=== PATIENT | female | born 1985 | race Caucasian/White ===

== ENCOUNTER 2023-07-02 19:27 | Emergency (ER) | payer OTHER, SELFPAY ==
[2023-07-02] MEDS ORDERED: Morphine 4 MG/ML VIAL ONE (19:35)
[2023-07-02] MEDS ORDERED: Boostrix 0.5 ML (Tdap) VIAL (>/=7 yrs of age) ONE (20:00)
[2023-07-02] MEDS ORDERED: Ondansetron ODT 4 MG TAB ONE (20:33)
== END 2023-07-02 20:49 | disposition home or self-care (01) ==
LOC: ERS 19:27
DX: S60.552A Superficial foreign body of left hand, initial encounter (principal); F17.210 Nicotine dependence, cigarettes, uncomplicated; W45.8XXA Other foreign body or object entering through skin, initial encounter
CPT/HCPCS: 90471; 90715; 96374; J2270; Q0162